=== PATIENT | male | born 1995 | race Caucasian/White ===

== ENCOUNTER 2017-05-10 14:15 | Emergency (ER) | payer OTHER ==
[2017-05-10] MEDS ORDERED: fentaNYL 100 MCG/2 ML SDV ONE (15:12)
[2017-05-10] MEDS ORDERED: LORazepam 2 MG/ML MDV IVPUSH ONE (15:13)
[2017-05-10] MEDS ORDERED: Midazolam 1 MG/ML 2 ML SDV IVPUSH ONE (15:14)
--- NOTE | 2017-05-10 15:18 | EDM.PDOC ---
ED HPI GENERAL MEDICAL PROBLEM - General Chief Complaint: Upper Extremity Injury/Pain Stated Complaint: [facility] Time Seen by Provider: 05/10/17 15:08 Source of Information: Reports: Patient History Limitations: Reports: No Limitations - History of Present Illness INITIAL COMMENTS - FREE TEXT/NARRATIVE: Patient is a 21-year-old male who was playing college football today when a helmet came in contact with his left wrist. He has obvious deformity to the wrist with numbness/tingling to his fingers and inability to move his fingers. He has severe localized discomfort. Otherwise he has no additional complaints at this time. Denies any previous past medical history and is currently taking no medications. Left Arm Pain Score (Numeric/FACES): 10 - Related Data Allergies Allergy/AdvReac Type Severity Reaction Status Date / Time Penicillins Allergy Hives Verified 05/10/17 14:39 Home Meds: Home Meds Acetaminophen/oxyCODONE [Percocet 325-5 MG] 1 tab PO Q6H PRN #16 tablet [Rx] Past Medical History - Past Health History Medical/Surgical History: Denies Medical/Surgical History Social & Family History - Tobacco Use Smoking Status *Q: Never Smoker - Caffeine Use Caffeine Use: Reports: None - Recreational Drug Use Recreational Drug Use: No Review of Systems - Review of Systems Review Of Systems: ROS reveals no pertinent complaints other than HPI. ED EXAM, GENERAL - Physical Exam Exam: See Below Exam Limited By: No Limitations General Appearance: Alert, WD/WN, Moderate Distress Ears: Hearing Grossly Normal Nose: Normal Inspection Throat/Mouth: Normal Voice, No Airway Compromise Neck: Normal Inspection, Supple Respiratory/Chest: No Respiratory Distress, Lungs Clear, Normal Breath Sounds, No Accessory Muscle Use, Chest Non-Tender Cardiovascular: Normal Peripheral Pulses, Tachycardia Peripheral Pulses: 2+: Radial (L) Extremities: Other (Severe deformity to the distal forearm consistent for Colles fracture. Skin is pink warm and dry. Patient states he has n/t to his fingers and unable to move his fingers. No open fracture present. No pain with palpation the left elbow, upper arm, or shoulder.) Neurological: Alert, Oriented, CN II-XII Intact, Normal Cognition, No Motor/ Sensory Deficits Psychiatric: Normal Affect, Normal Mood Skin Exam: Warm, Dry, Intact, Normal Color Course - Vital Signs Last Recorded V/S: Last Vital Signs Temp 97.8 F 05/10/17 14:27 Pulse 71 05/10/17 17:31 Resp 16 05/10/17 17:31 BP 141/86 H 05/10/17 17:31 Pulse Ox 100 05/10/17 17:31 - Orders/Labs/Meds Orders: Active Orders 24 hr Category Date Time Status Wrist 2V Lt [CR] Stat Exams 05/10/17 15:14 Taken Wrist 2V Lt [CR] Stat Exams 05/10/17 16:07 Taken Meds: Medications Discontinued Medications Generic Name Dose Route Start Last Admin Trade Name Arsenio PRNoemy Reason Stop Dose Admin Fentanyl Confirm 05/10/17 15:12 05/10/17 15:46 Sublimaze Administered 05/10/17 15:13 Not Given Dose 100 mcg .ROUTE .STK-MED ONE Fentanyl 100 mcg 05/10/17 15:26 05/10/17 15:10 Sublimaze IVPUSH 05/10/17 15:27 100 mcg ONETIME ONE Administration Fentanyl 50 mcg 05/10/17 15:35 05/10/17 15:34 Sublimaze IVPUSH 05/10/17 15:36 50 mcg ONETIME ONE Administration Ketamine HCl Confirm 05/10/17 15:45 Ketalar Administered 05/10/17 15:46 Dose 500 mg .ROUTE .STK-MED ONE Lorazepam 0.5 mg 05/10/17 15:13 05/10/17 15:25 Ativan IVPUSH 05/10/17 15:14 0.5 mg ONETIME ONE Administration Midazolam HCl 2 mg 05/10/17 15:14 05/10/17 15:27 Versed 1 Mg/Ml IVPUSH 05/10/17 15:15 2 mg ONETIME ONE Administration Midazolam HCl Confirm 05/10/17 15:45 Versed 1 Mg/Ml Administered 05/10/17 15:46 Dose 2 mg .ROUTE .STK-MED ONE - Re-Assessments/Exams Free Text/Narrative Re-Assessment/Exam: Patient has severe deformity to the left distal forearm consistent with Colles fracture. Patient has loss of sensation and unable to move his fingers secondary to discomfort. Skin is still pink warm and dry. Fentanyl 100 g ordered for pain. X-ray of the left wrist has been ordered. Anesthesias has been contacted for conscious sedation. Patient requires reduction of the affected extremity. I have ordered Versed 2 mg IVP and ativan 0.5mgIVP. Will have the consent form signed prior to pushing the ativan. Ativan will be pushed first. Will utilize versed/fentanyl for conscious sedation. X-ray revealed colles fracture. Due to the number of patients in the E.D. and need for heavy sedation. Anesthesia has been called in to assist. Consent form for conscious sedation and closed reduction completed. Risks benefits and alternative treatments discussed with the patient. Patient understood and signed the consent form. 1608 Fracture was reduced back to more proper anatomical position. Radial pulse present strong and brisk. Skin pin warm and dry. Patient is able to move his fingers freely with no issues. Postreduction film has been ordered. Sugar tong splint applied with no complications. Post reduction film: Reveals bony abnormalities put back more to a more normal anatomical position with splint in place. Once patient's sedation wears off he' ll sign a consent form to have the x-rays placed on a CD. Will discharge patient to medical management trainer staff once able. 05/10/17 16:54 Reassessment, patient's vitals are stable. He still is sedated slowly coming out of of it. Will continue to monitor. He will not be discharged until safe to do so. 05/10/17 17:15 Reassessment, patient's vitals are stable. He is much more alert. He is talking to training staff present in the ED. Will discharge patient home with instructions as documented. Departure - Departure Time of Disposition: 17:15 Disposition: Home, Self-Care 01 Condition: Good Clinical Impression: Colles' fracture of left radius Qualifiers: Encounter type: initial encounter Fracture type: closed Qualified Code(s): S52.532A - Colles' fracture of left radius, initial encounter for closed fracture Fracture of ulnar styloid Qualifiers: Encounter type: initial encounter Fracture type: closed Fracture alignment: nondisplaced Laterality: left Qualified Code(s): S52.615A - Nondisplaced fracture of left ulna styloid process, initial encounter for closed fracture - Discharge Information Prescriptions: Acetaminophen/oxyCODONE [Percocet 325-5 MG] 1 tab PO Q6H PRN #16 tablet PRN Reason: Pain (Severe 7-10) Instructions: Cast or Splint Care, [id number], Wrist Fracture Treated With Immobilization, [id number] Referrals: PCP,None [Primary Care Provider] - Forms: ED Department Discharge Additional Instructions: Leave splint in place until evaluated by orthopedic surgeon. Elevate when able to reduce any swelling and pain. Apply ice to the affected area 4-6 times daily , 20 minutes in duration, do not apply ice directly on the skin. Take Tylenol 650 mg and ibuprofen 600 mg every 6 hours in alternating form for pain. For severe pain take Percocet 1 tab every 6 hours as needed. Do not utilize alcohol while taking the Percocet. Do not drive while taking the Percocet. Suggest no driving this evening since receiving a sedative medication while in the ED. Follow-up with orthopedic surgeon this coming week for reevaluation. Return to ED for any new or worsening symptoms. Wear sling for the next 3 days when ambulating. Taking off to shower, when resting, and sleeping. - My Orders Last 24 Hours: My Active Orders 05/10/17 15:14 Wrist 2V Lt [CR] Stat 05/10/17 16:07 Wrist 2V Lt [CR] Stat - Assessment/Plan Last 24 Hours: My Active Orders 05/10/17 15:14 Wrist 2V Lt [CR] Stat 05/10/17 16:07 Wrist 2V Lt [CR] Stat
[2017-05-10] MEDS ORDERED: fentaNYL 100 MCG/2 ML SDV IVPUSH ONE ×2 (15:26→15:35)
[2017-05-10] MEDS ORDERED: Ketamine 500 mg/10 ML MDV ONE (15:45)
[2017-05-10] MEDS ORDERED: Midazolam 1 MG/ML 2 ML SDV ONE (15:45)
--- NOTE | 2017-05-10 16:43 | PCM.PREANE ---
Preanesthetic Assessment - Procedure Proposed Procedure: Closed reduction L wrist with splinting - Anesthesia/Transfusion/Family Hx Anesthesia History: Prior Anesthesia Without Reaction Family History of Anesthesia Reaction: No Transfusion History: No Prior Transfusion(s) - Review of Systems General: No Symptoms Pulmonary: No Symptoms Cardiovascular: No Symptoms Gastrointestinal: No Symptoms Neurological: No Symptoms Other: Reports: None - Physical Assessment NPO Status Date: 05/09/17 NPO Status Time: 13:30 O2 Sat by Pulse Oximetry: 16 Respiratory Rate: 16 Vital Signs: Last Vital Signs Temp 36.6 C 05/10/17 14:27 Pulse 64 05/10/17 14:27 Resp 16 05/10/17 14:27 BP 129/80 05/10/17 14:27 Pulse Ox 16 L 05/10/17 14:27 Height: 1.83 m Weight: 90.718 kg ASA Class: 1E Mental Status: Alert & Oriented x3 Airway Class: Mallampati = 1 Dentition: Reports: Normal Dentition Thyro-Mental Finger Breadths: 3 Mouth Opening Finger Breadths: 3 ROM/Head Extension: Full Lungs: Clear to Auscultation, Normal Respiratory Effort Cardiovascular: Regular Rate, Regular Rhythm - Allergies Allergies/Adverse Reactions: Allergies Allergy/AdvReac Type Severity Reaction Status Date / Time Penicillins Allergy Hives Verified 05/10/17 14:39 - Blood Blood Available: No Product(s) Available: None - Anesthesia Plan Pre-Op Medication Ordered: None - Acknowledgements Anesthesia Type Planned: MAC (Ketamine and versed due to NPO status.) Pt an Appropriate Candidate for the Planned Anesthesia: Yes Alternatives and Risks of Anesthesia Discussed w Pt/Guardian: Yes Pt/Guardian Understands and Agrees with Anesthesia Plan: Yes PreAnesthesia Questionnaire - Past Health History Medical/Surgical History: Denies Medical/Surgical History - SUBSTANCE USE Smoking Status *Q: Never Smoker Recreational Drug Use History: No - HOME MEDS Home Medications: Home Meds Acetaminophen/oxyCODONE [Percocet 325-5 MG] 1 tab PO Q6H PRN #16 tablet [Rx] - CURRENT (IN HOUSE) MEDS Current Meds: Current Medications Discontinued Medications Fentanyl (Sublimaze) Confirm Administered Dose 100 mcg .ROUTE .STK-MED ONE Stop: 05/10/17 15:13 Last Admin: 05/10/17 15:46 Dose: Not Given Fentanyl (Sublimaze) 100 mcg IVPUSH ONETIME ONE Stop: 05/10/17 15:27 Last Admin: 05/10/17 15:10 Dose: 100 mcg Fentanyl (Sublimaze) 50 mcg IVPUSH ONETIME ONE Stop: 05/10/17 15:36 Last Admin: 05/10/17 15:34 Dose: 50 mcg Ketamine HCl (Ketalar) Confirm Administered Dose 500 mg .ROUTE .STK-MED ONE Stop: 05/10/17 15:46 Lorazepam (Ativan) 0.5 mg IVPUSH ONETIME ONE Stop: 05/10/17 15:14 Last Admin: 05/10/17 15:25 Dose: 0.5 mg Midazolam HCl (Versed 1 Mg/Ml) 2 mg IVPUSH ONETIME ONE Stop: 05/10/17 15:15 Last Admin: 05/10/17 15:27 Dose: 2 mg Midazolam HCl (Versed 1 Mg/Ml) Confirm Administered Dose 2 mg .ROUTE .STK-MED ONE Stop: 05/10/17 15:46
[2017-05-10 17:31] VITALS: BP 141/86
--- NOTE | 2017-05-11 18:06 | CR ---
Left wrist: Two views of the left wrist were obtained utilizing portable technique. Distal radial fracture is seen with mild comminution. Fracture is displaced posteriorly by over a shaft width as well as being angulated and foreshortened. Fracture is seen within the ulnar styloid process. Soft tissue swelling. No additional bony abnormality is appreciated. Impression: 1. Displaced and slightly comminuted distal left radial fracture and ulnar styloid process fracture. 2. Soft tissue swelling. Diagnostic code #5
--- NOTE | 2017-05-12 12:54 | CR ---
Left wrist: Two views of the left wrist were obtained. Comparison: Previous left wrist study of 05/10/17 (3:10 PM). Previous distal radial fracture shows significant improvement in alignment from prior exam. Mild posterior displacement remains of the distal radial fragment. Ulnar styloid avulsion fracture noted which is close to anatomic in alignment. Fiberglass cast is in place. Impression: 1. Improved alignment of previous fracture. Mild posterior displacement remains of the distal radial fragment. 2. Fiberglass cast is in place. Diagnostic code #2
== END 2017-05-10 17:31 | disposition home or self-care (01) ==
LOC: JD.ED 14:15
DX: S52.532A Colles' fracture of left radius, initial encounter for closed fracture (principal); S52.615A Nondisplaced fracture of left ulna styloid process, initial encounter for closed fracture; Z88.0 Allergy status to penicillin; W21.81XA Striking against or struck by football helmet, initial encounter; Y93.61 Activity, american tackle football; Y92.214 College as the place of occurrence of the external cause
CPT/HCPCS: 25565; 73100; 96374; 96375; 99285; J2060; J2250; J3010; 01820; 29105; 99284-25